=== PATIENT | male | born 1960 | race African-American/Black ===

== ENCOUNTER 2024-08-12 13:59 | Emergency (ER) | payer MEDICARE, MEDICAID ==
[~2024-08-12] VITALS: Ht 170.2 cm; Wt 99.0 kg
[~2024-08-12 13:59] MED LIST: AMLO10TA80 PO; ASPI-1406 MT; BRIM10DR18 EACHEYE; HYDR25TA MT; ISOS-51 MT; LATA2.5D14 EACHEYE
[2024-08-12 14:18] VITALS: BP 145/87; TEMP 36.8; O2SAT 98
[2024-08-12 14:19] VITALS: PULSE 98; RESP 18; O2SAT 98
[2024-08-12] MEDS: LIDOCAINE HCL/PF 1% 10 MG/ML 5ML VIAL INFIL ONE (18:57)
[2024-08-12] MEDS: BACITRACIN ZINC OINT UDPKT TOP ONE (18:58)
== END 2024-08-12 19:42 | disposition home or self-care (01) ==
LOC: ER 13:59
DX: L02.01 Cutaneous abscess of face (principal); Z98.890 Other specified postprocedural states; Z79.82 Long term (current) use of aspirin; Z79.899 Other long term (current) drug therapy
CPT/HCPCS: 10060; 99282; J2003